=== PATIENT | male | born 1955 | race Caucasian/White ===

== ENCOUNTER 2020-08-25 02:58 | Emergency (ER) | payer MEDICARE, SELFPAY ==
--- NOTE | 2020-08-25 03:11 | ED_ITS ---
HPI - CPR General Chief Complaint: Cardiac Arrest/CPR Stated Complaint: cardiac arrest Source: EMS Mode of arrival: EMS Limitations: other (unresponsive) History of Present Illness HPI narrative: This is a 65-year-old male that was found unresponsive with no pulse no respirations was a bystander that was standing nearby that mentioned EMS that the patient had collapsed and was found on the ground EMS upon arrival found that the patient was unresponsive pulseless with no respirations. CPR was started, epinephrine was administered patient was intubated and brought to the emergency department. Upon arrival to the emergency department approximately at 2:47 a.m. a.m. CPR was in progress patient intubated 3 rounds of epi were administered, and 4 rounds of epinephrine were administered in the emergency department. Patient had IO access with IV fluids administered. Patient was in initially in PEA, after 4 rounds of epi there was no pulse and patient was in asystole. complaint: found unresponsive Onset (ago): minute(s) Time: 02:13 Timing confirmed by: other Place: other Bystander CPR performed: No AED applied by bystander/substance abuse nurse: No Shock advised: No Initial findings in the field: unresponsive, no respirations and no pulse ROSC in the field: No Associated injuries: No Treatments prior to arrival: intubation, chest compressions and epinephrine mgs # Related Data Allergies Allergy/AdvReac Type Severity Reaction Status Date / Time No Known Allergies Allergy Verified 09/27/19 14:15 Review of Systems Review of Systems: All systems reviewed & are unremarkable except as noted in HPI and below PMFSH Past Medical History Medical History Hypertension Noncompliance with medication regimen Surgical History Surgical History No pertinent past surgical history Social History Social History Gender identity (if verbalized by the patient): Male Exam Const: Other: Unresponsive Eyes: Other: fixed and dilated Resp: Other: intubated Cardio: Other: pulseless electrical activity GI: Inspection: distended Skin: Other: mottled Neuro: Other: unresponsive Course Course Emergency Course: patient brought in by EMS with CPR in progress the patient was found to be in asystole and subsequently PEA, intubated with IO access with IV fluids administered 4 rounds of epinephrine given in the emergency department at around 2:47 a.m. and after numerous follow-up pulse checks patient was pulseless and was in asystole and code was called at 3:03 a.m.. Critical Care Time Critical Care Time Critical Care Time: Yes Total Critical Care Time: 16 Discharge Plan Discharge Clinical Impression: Cardiac arrest, Sudden cardiac Patient Disposition: Condition: Terminal Prescriptions: No Action cefuroxime axetil 500 mg tablet 500 mg PO BID Qty: 20 RF: 0 amlodipine [Norvasc] 5 mg tablet 5 mg PO DAILY Qty: 30 RF: 0 naproxen 500 mg tablet 500 mg PO BID PRN (Reason: pain) Qty: 20 RF: 0 Follow-up/Referrals: UNKNOWN,DOCTOR [Primary Care Provider] - Time of Disposition: 03:20
== END 2020-08-25 03:03 | disposition expired ==
PROVIDERS: Emergency Provider Emergency Medicine
DX: I46.9 Cardiac arrest, cause unspecified (principal)
CPT/HCPCS: 92950; 99284; 99285; J0171